=== PATIENT | female | born 1940 | race Caucasian/White ===

== ENCOUNTER 2022-02-05 09:31 | Emergency (ER) | payer MEDICARE, OTHER ==
[~2022-02-05] VITALS: Ht 165.1 cm; Wt 74.8 kg
[~2022-02-05 09:31] MED LIST: AMBIEN5 MG PO; BACLOFEN20 MG PO; CALTRATE 600600 MG; CHEWABLE MULTI1 EAC1; CHONDROITIN PO; COLESTIPOL HCL1 GM PO; DICYCLOMINE HCL10 MG PO; FISH OIL300 MG; GLUCOSAMINE1000 MG PO; IRON27 MG; MELOXICAM7.5 MG PO; NORCO 10-325 T1 EACH PO; VITAMIN C250 M1
[2022-02-05] MEDS ORDERED: IBUPROFEN200 MG PO (10:21)
[2022-02-05] MEDS ORDERED: CEFDINIR300 MG PO (10:21)
[2022-02-05] MEDS ORDERED: PROBIOTIC & AC1 EACH PO (10:21)
[2022-02-05] MEDS ORDERED: CEFTRIAXONE 1 GM VIAL IM ONE (11:00)
== END 2022-02-05 10:47 | disposition home or self-care (01) ==
LOC: FSED 10:08
DX: H66.93 Otitis media, unspecified, bilateral (principal); E78.5 Hyperlipidemia, unspecified; R42 Dizziness and giddiness
CPT/HCPCS: 99283; J0696